=== PATIENT | male | born 1985 | race Caucasian/White ===

== ENCOUNTER 2017-06-08 00:29 | Emergency (ER) | payer SELFPAY ==
[2017-06-08 00:38] VITALS: TEMP 98.4
[2017-06-08 02:37] VITALS: PULSE 80; RESP 14
[2017-06-08 03:58] VITALS: BP 120/80; O2SAT 98
== END 2017-06-08 03:58 | disposition home or self-care (01) ==
LOC: C.ER 00:29
DX: N13.2 Hydronephrosis with renal and ureteral calculous obstruction (principal)
CPT/HCPCS: 74176; 80053; 81001; 83690; 85025; 96361; 96374; 96375; 99284; J1885; J7040